=== PATIENT | female | born 1935 | race Caucasian/White ===

== ENCOUNTER 2018-02-08 12:30 | Emergency (ER) | payer OTHER ==
[~2018-02-08] VITALS: Ht 154.9 cm; Wt 52.5 kg
[2018-02-08 13:33] LABS: BASOPHILS # (AUTO) 0.01 x10^3/uL (0-0.1); BASOPHILS % (AUTO) 0 % (0-1); EOSINOPHILS # (AUTO) 0.15 x10^3/uL (0-0.4); EOSINOPHILS % (AUTO) 2 % (1-7); LYMPHOCYTES # (AUTO) 1.76 x10^3/uL (1-3.4); LYMPHOCYTES % (AUTO) 26 % (22-44); MD NO; MEAN CORPUSCULAR HGB CONC 33.5 g/dL (32.4-35.8); MEAN CORPUSCULAR VOLUME 89.7 fL (80-100); MEAN PLATELET VOLUME 10.6 fL (7.4-10.4); MONOCYTES % (AUTO) 7 % (2-9); NEUTROPHILS # (AUTO) 4.32 x10^3/uL (1.8-6.8); NEUTROPHILS % (AUTO) 64 % (42-75); PLATELET COUNT 261 x10^3/uL (130-400); RED BLOOD COUNT 5.29 x10^6/uL (3.82-5.3); RED CELL DISTRIBUTION WIDTH 14.1 % (9.6-15.2)
[2018-02-08 13:42] LABS: ALANINE AMINOTRANSFERASE 25 U/L (12-78); ALBUMIN 3.2 g/dL (3.4-5.0); ANION GAP 8 mmol/L (5-15); CALCIUM 8.9 mg/dL (8.5-10.1); CHLORIDE 109 mmol/L (98-107); CREATININE 0.83 mg/dL (0.55-1.02)
[2018-02-08 13:45] LABS: ALKALINE PHOSPHATASE 96 U/L (45-117); BILIRUBIN,TOTAL 0.5 mg/dL (0.2-1.0)
[2018-02-08 14:14] LABS: MICROSCOPIC AUTO
[2018-02-08 14:18] LABS: CULTURE INDICATED? NO
[2018-02-08] MEDS ORDERED: OMNIPAQUE 350 MG/ML, 100ML BOTTLE ONE (14:31)
[2018-02-08] MEDS ORDERED: SODIUM CHLORIDE 0.9% 1,000 ML IV SCH (15:00)
[2018-02-08] MEDS ORDERED: CEFOTETAN PMX 2GM/50ML 50 ML IV ONE (15:00)
[2018-02-08 15:16] VITALS: BP 151/78
== END 2018-02-08 15:21 | disposition home or self-care (01) ==
LOC: ED 15:15
DX: N85.2 Hypertrophy of uterus (principal); R93.5 Abnormal findings on diagnostic imaging of other abdominal regions, including retroperitoneum
CPT/HCPCS: 36415; 74177; 80053; 81001; 85025; 99285; Q9967

== ENCOUNTER 2018-10-22 10:59 | Outpatient (CLI) | payer MEDICARE, OTHER | END 2018-10-22 23:59 | disposition home or self-care (01) | LOC: LAB 10:59 | PROVIDERS: ATTEND Hospitalist | DX: R73.9 Hyperglycemia, unspecified (principal) | CPT/HCPCS: 36415; 80048; 82043; 83036 ==

== ENCOUNTER 2019-02-05 12:02 | Outpatient (CLI) | payer MEDICARE, OTHER ==
[2019-02-05] MEDS ORDERED: BIMA2.5D EACHEYE (12:41)
[2019-02-05] MEDS ORDERED: ASCO-96 PO (12:58)
[2019-02-05] MEDS ORDERED: CALC-183 PO (12:58)
[2019-02-05] MEDS ORDERED: IODI150T PO (12:58)
[2019-02-05] MEDS ORDERED: FLAX10004 PO (12:58)
[2019-02-05] MEDS ORDERED: METH500C3 PO (12:58)
[2019-02-05] MEDS ORDERED: [UNRECOGNIZED DRUG - CODE] PO (12:58)
[2019-02-05] MEDS ORDERED: [UNRECOGNIZED DRUG - OTHER] PO (12:58)
== END 2019-02-05 23:59 | disposition home or self-care (01) ==
LOC: STAR 12:02
PROVIDERS: ATTEND Obstetrics & Gynecology
DX: Z01.818 Encounter for other preprocedural examination (principal); R93.89 Abnormal findings on diagnostic imaging of other specified body structures
CPT/HCPCS: 93005

== ENCOUNTER 2019-02-13 10:46 | Day surgery (SDC) | payer MEDICARE, OTHER ==
[~2019-02-13] VITALS: Ht 154.9 cm; Wt 53.5 kg
[~2019-02-13 10:46] MED LIST: ASCO-96 PO; BIMA2.5D EACHEYE; CALC-183 PO; FLAX10004 PO; IODI150T PO; METH500C3 PO; [UNRECOGNIZED DRUG - CODE] PO; [UNRECOGNIZED DRUG - OTHER] PO
[2019-02-13] MEDS ORDERED: LACTATED RINGERS 1,000 ML IV SCH (11:14)
[2019-02-13] MEDS ORDERED: LIDOCAINE-MPF 1%, 2ML ONE (11:16)
[2019-02-13] MEDS ORDERED: LIDOCAINE-MPF 1%, 2ML INFIL ONE (11:30)
[2019-02-13] MEDS ORDERED: PROPOFOL 50 ML ONE (12:43)
[2019-02-13] MEDS ORDERED: FENTANYL PF 250 MCG/5ML ONE (12:44)
[2019-02-13 12:45] VITALS: BP 171/94
[2019-02-13] MEDS ORDERED: ONDANSETRON 2MG/ML, 2ML ONE (13:25)
[2019-02-13] MEDS ORDERED: PROPOFOL 10 MG/ML, 20ML ONE (13:25)
[2019-02-13] MEDS ORDERED: ONDANSETRON 2MG/ML, 2ML IV PRN (13:30)
[2019-02-13] MEDS ORDERED: MIDAZOLAM 1 MG/ML, 2ML IV PRN (13:30)
[2019-02-13] MEDS ORDERED: DIPHENHYDRAMINE 50 MG/ML, 1ML IVPush PRN (13:30)
[2019-02-13] MEDS ORDERED: OXYcodone 5 MG/5 ML ORAL.SOL UDC PO PRN (13:30)
[2019-02-13] MEDS ORDERED: MORPHINE SULFATE 4 MG/ML, 1ML IVPush PRN (13:30)
[2019-02-13] MEDS ORDERED: ONDANSETRON ODT 8 MG PO PRN (13:30)
[2019-02-13] MEDS ORDERED: FENTANYL PF 100 MCG/2ML IV PRN (13:30)
== END 2019-02-13 15:30 | disposition home or self-care (01) ==
LOC: OUT 10:46
PROVIDERS: ATTEND Obstetrics & Gynecology
DX: N84.0 Polyp of corpus uteri (principal); I10 Essential (primary) hypertension; M19.90 Unspecified osteoarthritis, unspecified site; Z79.82 Long term (current) use of aspirin; Z79.899 Other long term (current) drug therapy; Z88.8 Allergy status to other drugs, medicaments and biological substances; Z98.890 Other specified postprocedural states
CPT/HCPCS: 58558; 88305; J2405; J2704; J3010; J7120